=== PATIENT | male | born 1970 | race African-American/Black ===

== ENCOUNTER 2020-04-03 08:18 | Inpatient (IN) | payer OTHER ==
[~2020-04-03] VITALS: Ht 172.7 cm; Wt 109.4 kg
[~2020-04-03 08:18] MED LIST: DOXYCYCLINE 10100 MG PO
[2020-04-03 08:56] LABS: BASO # 0.1 (0.0-0.2); BASO % 0.6 % (0.0-2.0); EOS # 0.1 (0.0-0.7); EOS % 1.3 % (0-4.0); GRAN # 7.9 (1.4-6.5); GRAN % 74.6 % (42.2-75.2); HEMATOCRIT 41.6 % (42.0-52.0); LYMPH # 1.7 (1.2-3.4); LYMPH % 16.6 % (20.0-51.0); MEAN CELL VOLUME 89 fl (80.0-100.0); MEAN CORPUSCULAR HEMOGLOBIN 28 pg (27.0-31.0); MEAN CORPUSCULAR HGB CONC 31 g/dl (33.0-37.0); MEAN PLATELET VOLUME 9.1 fl (7.4-10.4); MONO # 0.7 (0.1-0.6); MONO % 6.6 % (1.7-9.3); PLATELET COUNT 286 K/mm3 (130-400); RED BLOOD COUNT 4.69 M/mm3 (4.20-5.60); REDCELL DISTRIBUTION WIDTH-CV 15.8 % (11.5-14.5)
[2020-04-03 09:06] LABS: ALBUMIN 3.9 gm/dL (3.5-5.0); BILIRUBIN,TOTAL 0.7 mg/dL (0.0-1.0); CALCIUM 9.1 mg/dL (8.4-10.2); CREATININE, serum 1.36 (0.66-1.25); POTASSIUM 3.4 mmol/L (3.4-5.0); TOTAL PROTEIN 6.9 gm/dL (6.4-8.2)
[2020-04-03 09:17] LABS: TROPONIN-I 0.021 ng/mL (0.000-0.035)
--- NOTE | 2020-04-03 13:10 | NUR ---
PT PLEASANT, AOX4, NOT HAVING SOB AT THIS TIME, REPORTS FEELING WEAK WITH COVID AND THAT WAS WHEN HE HAD HIS FALL BUT PT NO LONGER FEELS WEAK, PT ASSESSMENT PERFORMED, SIGNIFICANT BLE EDEMA NOTED, PT REPORTS THE EDEMA LESSENING AFTER DOSE OF LASIX IN ED, IV SITE CDI W/O ERYTHEMA, PT DENIES PAIN OR DISCOMFORT AT THIS TIME, EAGER TO ORDER LUNCH, EDUCATED ON BATHROOM, CALL LIGHT, REMOTE AND HOW TO USE PHONE, NO OTHER NEEDS AT THIS TIME.
--- NOTE | 2020-04-03 15:49 | NUR ---
EDUCATED PT ON FLUID RESTRICTION, SHOWED HIM HOW MUCH FLUID HE COULD HAVE, PT HAS LARGE PLASTIC CUP WITH ML MEASUREMENTS TO BETTER TRACK INTAKE.
[2020-04-03 17:01] VITALS: BP 157/108; PULSE 101; TEMP 97.9
--- NOTE | 2020-04-03 17:56 | NUR ---
PT HAVING INC BP, BP MED GIVEN, DENIES SOB AT REST, FLUID RESTRICTION ENFORCED, NO OTHER NEEDS.
--- NOTE | 2020-04-03 19:48 | NUR ---
Resting in bed. Assessment complete. Right lung diminished. Left lung clear. HEart sounds normal. Bowels active x4. Pulses present throughout. Bilateral lower extremity edema +3. INT right AC flushed without complications. Denies pain. Denies needs at this time. Call light in reach.
[2020-04-03 19:49] VITALS: BP 169/97; PULSE 106; TEMP 98.4
[2020-04-03 20:06] VITALS: BP 161/103; PULSE 103; TEMP 98
[2020-04-04] VITALS (8 sets, daily range): BP systolic 141–173; BP diastolic 95–110; PULSE 101–113; TEMP 97.7–98.4
--- NOTE | 2020-04-04 | NUR ---
Resting in bed. Denies needs. Call light in reach.
--- NOTE | 2020-04-04 01:05 | NUR ---
Patient BP elevated. Marj ALLEN notified. Will add orders.
--- NOTE | 2020-04-04 05:45 | NUR ---
Patient had elevated BP during night. Marj ALLEN was notified and no new orders giving. Monitor and call if above 170. Patient resting in bed this AM. Call light in reach.
[2020-04-04 07:12] LABS: BASO % 0.3 % (0.0-2.0); EOS # 0.2 (0.0-0.7); EOS % 1.7 % (0-4.0); GRAN # 7.5 (1.4-6.5); GRAN % 73.2 % (42.2-75.2); HEMATOCRIT 41.9 % (42.0-52.0); LYMPH # 1.6 (1.2-3.4); LYMPH % 15.4 % (20.0-51.0); MEAN CELL VOLUME 88 fl (80.0-100.0); MEAN CORPUSCULAR HEMOGLOBIN 27 pg (27.0-31.0); MEAN CORPUSCULAR HGB CONC 31 g/dl (33.0-37.0); MEAN PLATELET VOLUME 9.5 fl (7.4-10.4); MONO # 0.9 (0.1-0.6); MONO % 9.1 % (1.7-9.3); PLATELET COUNT 299 K/mm3 (130-400); RED BLOOD COUNT 4.76 M/mm3 (4.20-5.60); REDCELL DISTRIBUTION WIDTH-CV 15.7 % (11.5-14.5)
--- NOTE | 2020-04-04 07:28 | NUR ---
Report given to DEE White
[2020-04-04 07:30] LABS: ALBUMIN 3.7 gm/dL (3.5-5.0); BILIRUBIN,TOTAL 1.1 mg/dL (0.0-1.0); CALCIUM 9.1 mg/dL (8.4-10.2); CREATININE, serum 1.37 (0.66-1.25); MAGNESIUM 2.3 mg/dL (1.6-2.3); POTASSIUM 3.3 mmol/L (3.4-5.0); TOTAL PROTEIN 6.7 gm/dL (6.4-8.2)
[2020-04-04 07:33] LABS: TROPONIN-I 0.031 ng/mL (0.000-0.035)
--- NOTE | 2020-04-04 14:21 | NUR ---
Primary nurse was assisted with [id number] patient care by [facility] aria Draper and [facility] Sandy Lawrence RN-BC.
--- NOTE | 2020-04-04 15:01 | NUR ---
Vending Machine Coin Collector met with patient to discuss discharge planning. Patient's girlfriend, Kaylin (ph#[phone]) is at bedside. Patient lives in [place] with Kaylin and sees Dr. Hi for primary care. Patient obtains medications from [facility] on [address] with no difficulties. Patient does not use any DME and is independent with [facility]. Patient does not have Advance Directives. Patient is not and does not have children. Patient's legal next of kin would be his parents, Roman and Ortega (ph#[phone]). Patient plans to return home upon discharge. SW will continue to follow as needed.
--- NOTE | 2020-04-04 17:21 | NUR ---
UNEVENTFUL SHIFT, AOX4, GIRLFRIEND IN ROOM, FOLLOWING FLUID RESTRICTION, NO OTHER NEEDS.
--- NOTE | 2020-04-04 20:55 | NUR ---
Resting in bed. Assessment complete. Lungs clear. Heart sounds normal. Bowels active x4. Pulses present throughout. Bilateral lower extremity edema +2. INT right AC flushed without complications. Denies pain. Denies needs at this time. Call light in reach.
[2020-04-05] VITALS: BP 156/96; PULSE 104; TEMP 98
[2020-04-05 05:07] VITALS: BP 156/103; PULSE 102; TEMP 98.4
--- NOTE | 2020-04-05 06:09 | NUR ---
Patient had uneventful night. Resting in bed this AM. Call light in reach.
--- NOTE | 2020-04-05 07:11 | NUR ---
Report given to DEE Edgar
[2020-04-05 07:19] LABS: ALBUMIN 3.6 gm/dL (3.5-5.0); BILIRUBIN,TOTAL 1.2 mg/dL (0.0-1.0); CALCIUM 9.1 mg/dL (8.4-10.2); CREATININE, serum 1.22 (0.66-1.25); MAGNESIUM 2.3 mg/dL (1.6-2.3); POTASSIUM 3.7 mmol/L (3.4-5.0); TOTAL PROTEIN 6.5 gm/dL (6.4-8.2)
[2020-04-05 07:25] LABS: HEMATOCRIT 41.7 % (42.0-52.0); HEMOGLOBIN 13.8 g/dl (13.5-18.0); MEAN CELL VOLUME 85 fl (80.0-100.0); MEAN CORPUSCULAR HEMOGLOBIN 28 pg (27.0-31.0); MEAN CORPUSCULAR HGB CONC 33 g/dl (33.0-37.0); MEAN PLATELET VOLUME 9.6 fl (7.4-10.4); PLATELET COUNT 270 K/mm3 (130-400); RED BLOOD COUNT 4.92 M/mm3 (4.20-5.60); REDCELL DISTRIBUTION WIDTH-CV 15.3 % (11.5-14.5)
[2020-04-05 08:06] VITALS: BP 167/113; PULSE 108; TEMP 98
[2020-04-05] MEDS ORDERED: LASIX 40MG TABL40 MG PO (09:41)
[2020-04-05] MEDS ORDERED: COZAAR 25MG25 MG/TAB PO (09:41)
[2020-04-05] MEDS ORDERED: K-DUR 10 MEQ T10 MEQ PO (09:41)
[2020-04-05] MEDS ORDERED: TOPROL XL 25MG25 MG PO (09:42)
--- NOTE | 2020-04-05 09:46 | NUR ---
Assessment complete. Pt denies pain or SOB. Visitor at bedside. Pt will discharge later this am. Pt denies needs. Call light within reach.
--- NOTE | 2020-04-05 10:46 | NUR ---
Discharge instructions reviewed with patient. Information sheets on new medications and low sodium diet provided. Questions invited and answered. INT and telemetry discontinued.
--- NOTE | 2020-04-05 11:04 | NUR ---
Pt escorted out via wheelchair by SOCORRO
[2020-04-05 11:06] LABS: ANISOCYTOSIS 1+; EOSINOPHIL 2 % (0-4); LYMPHOCYTE 20 % (20.0-51.0); NEUTROPHILS 69 % (42.0-75.2); PLATELET ESTIMATE NORMAL (NORMAL)
== END 2020-04-05 11:10 | disposition home or self-care (01) | DRG 291 ==
LOC: COL.ER 08:18 → MEDICAL 11:00
PROVIDERS: Emergency Medicine; Physician Assistant; ADMIT Student in an Organized Health Care Education/Training Program
DX: I13.0 Hypertensive heart and chronic kidney disease with heart failure and stage 1 through stage 4 chronic kidney disease, or unspecified chronic kidney disease (principal); I50.21 Acute systolic (congestive) heart failure; N17.9 Acute kidney failure, unspecified; E87.2 Acidosis; N18.9 Chronic kidney disease, unspecified; I42.9 Cardiomyopathy, unspecified; R00.0 Tachycardia, unspecified; E87.6 Hypokalemia; R74.01 Elevation of levels of liver transaminase levels; B94.8 Sequelae of other specified infectious and parasitic diseases; Z87.891 Personal history of nicotine dependence; Z88.0 Allergy status to penicillin
CPT/HCPCS: 99233-AI; J1650; J1940; Q9967

== ENCOUNTER 2020-05-30 12:29 | Outpatient (RCR) | payer OTHER ==
[~2020-05-30 12:29] MED LIST changes: +COZAAR 25MG25 MG/TAB PO; +K-DUR 10 MEQ T10 MEQ PO; +LASIX 40MG TABL40 MG PO; +TOPROL XL 25MG25 MG PO
== END 2020-06-06 16:06 | disposition home or self-care (01) ==
LOC: COL.CR 12:29
DX: I50.20 Unspecified systolic (congestive) heart failure (principal)

== ENCOUNTER 2020-06-02 08:00 | Outpatient (RCR) | payer SELFPAY ==
[2020-06-27] MEDS ORDERED: COZAAR 50MG50 MG/TAB PO (08:40)
[2020-06-27] MEDS ORDERED: LASIX 20MG TABL20 MG PO (08:41)
[2020-06-27] MEDS ORDERED: TOPROL XL 50MG50 MG PO (08:41)
[2020-06-27] MEDS ORDERED: ALDACTONE 25MG25 M1 PO (08:42)
[2020-06-27] MEDS ORDERED: MASON NATURAL2000 IU PO (08:42)
== END 2020-08-31 | disposition home or self-care (01) ==
LOC: COL.CR
DX: Z02.89 Encounter for other administrative examinations (principal)

== ENCOUNTER 2020-06-27 08:12 | Day surgery (SDC) | payer OTHER ==
[~2020-06-27] VITALS: Ht 172.7 cm; Wt 105.7 kg
[2020-06-27] VITALS (13 sets, daily range): BP systolic 118–144; BP diastolic 77–93; PULSE 55–77; TEMP 96.3
[2020-06-27] MEDS ORDERED: COZAAR 50MG50 MG/TAB PO (08:40)
[2020-06-27] MEDS ORDERED: LASIX 20MG TABL20 MG PO (08:41)
[2020-06-27] MEDS ORDERED: TOPROL XL 50MG50 MG PO (08:41)
[2020-06-27] MEDS ORDERED: MASON NATURAL2000 IU PO (08:42)
[2020-06-27] MEDS ORDERED: ALDACTONE 25MG25 M1 PO (08:42)
[2020-06-27 09:24] LABS: HEMATOCRIT 39.2 % (42.0-52.0); HEMOGLOBIN 12.8 g/dl (13.5-18.0); MEAN CELL VOLUME 84 fl (80.0-100.0); MEAN CORPUSCULAR HEMOGLOBIN 27 pg (27.0-31.0); MEAN CORPUSCULAR HGB CONC 33 g/dl (33.0-37.0); MEAN PLATELET VOLUME 9.2 fl (7.4-10.4); PLATELET COUNT 210 K/mm3 (130-400); RED BLOOD COUNT 4.69 M/mm3 (4.20-5.60); REDCELL DISTRIBUTION WIDTH-CV 14.1 % (11.5-14.5)
[2020-06-27 09:34] LABS: CALCIUM 9.4 mg/dL (8.4-10.2); CREATININE, serum 1.36 (0.66-1.25); POTASSIUM 4.2 mmol/L (3.4-5.0)
[2020-06-27 09:37] LABS: INR 1.1 (0.8-3.0); PROTHROMBIN TIME 12.2 SECONDS (9.7-12.8)
[2020-06-27 09:40] LABS: PARTIAL THROMBOPLASTIN TIME 31.9 SECONDS (26.0-37.0)
--- NOTE | 2020-06-27 10:10 | NUR ---
SEE MERGE FOR ALL MEDICATION ADMINISTRATION TIMES, INTRA AND POST SEDATION ASSESSMENTS
--- NOTE | 2020-06-27 11:40 | NUR ---
PT BACK FROM [facility], SR/SB ON MONITOR, TELE IMPLEMENTED. TR BAND TO RT WRIST, CMS INTACT DISTAL. RT ARM SOFT, LARGER THAT LEFT FOREARM, NO FIRMNESS PALPATED, NO HEMATOMA NOTED. PT EDUCATED ABOUT NEED TO ALERT ME IF HE FELT ANY TIGHTNESS IN RT FOREARM, OR ANY OTHER EVIDENCE OF BLEEDING. CALL LIGHT IN REACH. LUNCH ORDERED.
--- NOTE | 2020-06-27 12:26 | NUR ---
Initial visit; Patient request for prayer prior to surgical procedure. Custom Feed Mill Operator Helper offered encouragement and prayer. Patient friendly and thanked Custom Feed Mill Operator Helper for visit.
--- NOTE | 2020-06-27 17:56 | NUR ---
Pt is ready to go home. pt's recovery has been uneventful, TR band is deflated with cms intact distal and no bleeding. site dressed with bandaid, folded 2x2 and coban dressing. I have reviewed pt's dc and fu instructions with pt. he verbalized understanding. he has been ambulatory with steady gait, iv has been dc'd, dressing applied. to exit via wheelchair.
== END 2020-06-27 19:33 | disposition home or self-care (01) ==
LOC: COL.CAR 08:12
PROVIDERS: Internal Medicine Interventional Cardiology
DX: I25.10 Atherosclerotic heart disease of native coronary artery without angina pectoris (principal); I50.21 Acute systolic (congestive) heart failure; I11.0 Hypertensive heart disease with heart failure; R94.39 Abnormal result of other cardiovascular function study; R42 Dizziness and giddiness; Z86.16 Personal history of COVID-19; Z88.0 Allergy status to penicillin; Z20.822 Contact with and (suspected) exposure to COVID-19; Z79.82 Long term (current) use of aspirin; Z79.899 Other long term (current) drug therapy
CPT/HCPCS: C1725; C1769; C1887; J0583; J1644; J2250; J3010

== ENCOUNTER 2020-11-26 15:13 | Outpatient (RCR) | payer SELFPAY ==
[~2020-11-26 15:13] MED LIST changes: +ALDACTONE 25MG25 M1 PO; +COZAAR 50MG50 MG/TAB PO; +LASIX 20MG TABL20 MG PO; +MASON NATURAL2000 IU PO; +TOPROL XL 50MG50 MG PO
== END 2020-12-02 | disposition still patient (30) ==
LOC: COL.CR
DX: Z02.89 Encounter for other administrative examinations (principal)

== ENCOUNTER 2021-01-09 11:41 | Day surgery (SDC) | payer OTHER ==
[2021-01-09 12:36] LABS: HEMATOCRIT 37.1 % (42.0-52.0); HEMOGLOBIN 12.2 g/dl (13.5-18.0); MEAN CELL VOLUME 90 fl (80.0-100.0); MEAN CORPUSCULAR HEMOGLOBIN 30 pg (27.0-31.0); MEAN CORPUSCULAR HGB CONC 33 g/dl (33.0-37.0); MEAN PLATELET VOLUME 9.3 fl (7.4-10.4); PLATELET COUNT 200 K/mm3 (130-400); RED BLOOD COUNT 4.11 M/mm3 (4.20-5.60)
[2021-01-09 12:47] LABS: PROTHROMBIN TIME 11.3 SECONDS (9.7-12.8)
[2021-01-09] MEDS ORDERED: CRESTOR20 MG PO (12:48)
[2021-01-09] MEDS ORDERED: OMEGA-3 FISH1000 MG PO (12:49)
[2021-01-09] MEDS ORDERED: ASPIRIN E.C. 8181 MG PO (12:53)
[2021-01-09] MEDS ORDERED: PLAVIX 75MG TAB75 MG PO (12:54)
[2021-01-09 12:57] LABS: CREATININE, serum 1.5 mg/dL (0.72-1.25); POTASSIUM 4.2 mmol/L (3.5-4.5)
--- NOTE | 2021-01-09 13:01 | NUR ---
Procedure cancelled by physician.
== END 2021-01-09 14:20 ==
LOC: COL.CAR 11:41
PROVIDERS: Internal Medicine Interventional Cardiology
DX: I25.10 Atherosclerotic heart disease of native coronary artery without angina pectoris (principal); I10 Essential (primary) hypertension; I50.20 Unspecified systolic (congestive) heart failure; Z79.899 Other long term (current) drug therapy; Z79.02 Long term (current) use of antithrombotics/antiplatelets; Z79.82 Long term (current) use of aspirin

== ENCOUNTER → 2021-03-11 | Outpatient (CLI) | payer OTHER ==
[~2021-03-11] MED LIST changes: +ASPIRIN E.C. 8181 MG PO; +CRESTOR20 MG PO; +OMEGA-3 FISH1000 MG PO; +PLAVIX 75MG TAB75 MG PO
== END ==
LOC: COL.LAB 14:10
DX: Z01.812 Encounter for preprocedural laboratory examination (principal); I11.0 Hypertensive heart disease with heart failure; I50.20 Unspecified systolic (congestive) heart failure

== ENCOUNTER → 2021-04-15 | Outpatient (CLI) | payer OTHER | LOC: ZCOL.LAB 09:44 | DX: I25.10 Atherosclerotic heart disease of native coronary artery without angina pectoris (principal) ==

== ENCOUNTER 2021-04-28 13:27 | Outpatient (RCR) | payer SELFPAY | END 2021-05-28 | LOC: COL.CR | DX: Z29.8 Encounter for other specified prophylactic measures (principal) ==